=== PATIENT | female | born 1950 ===

== ENCOUNTER 2023-05-26 08:30 | Inpatient (IN) | payer OTHER ==
[~2023-05-26] VITALS: Ht 160 cm; Wt 95.3 kg
[2023-05-26] MEDS ORDERED: COZAAR100 MG PO (09:53)
[2023-05-26] MEDS ORDERED: FOLIC PO (09:54)
[2023-05-26] MEDS ORDERED: HORIZANT600 MG PO (09:54)
[2023-05-26] MEDS ORDERED: ACID REDUCER20 M1 PO (09:54)
[2023-05-26] MEDS ORDERED: SINGULAIR10 MG PO (09:55)
[2023-05-26] MEDS ORDERED: TIROSINT88 MCG PO (09:55)
[2023-05-26] MEDS ORDERED: BUSP PO (09:55)
[2023-05-26] MEDS ORDERED: TRIJARDY XR 251 EACH PO (09:57)
[2023-05-31] MEDS ORDERED: FOLIC ACID1 MG PO (08:54)
[2023-05-31] MEDS ORDERED: BUSPIRONE HCL5 MG PO (08:55)
[2023-05-31] MEDS ORDERED: ROSUVASTATIN CA40 MG (08:56)
[2023-05-31] MEDS ORDERED: GABAPENTIN300 M2 (08:56)
[2023-05-31] MEDS ORDERED: JARDIANCE25 MG (08:56)
[2023-05-31] MEDS ORDERED: CHLORTHALIDONE25 MG (08:56)
[2023-05-31] MEDS ORDERED: ST. JOSEPH ASPI81 M2 (08:56)
[2023-05-31] MEDS ORDERED: SERTRALINE HCL25 MG (08:56)
[2023-05-31] MEDS ORDERED: OMEPRAZOLE20 MG (08:56)
[2023-05-31] MEDS ORDERED: FAMOTIDINE40 MG (08:56)
[2023-05-31] MEDS ORDERED: DOXAZOSIN MESYLA4 MG (08:56)
[2023-05-31] MEDS ORDERED: ZANAFLEX2 MG (08:57)
[2023-05-31] MEDS ORDERED: TOLTERODINE TART4 MG (08:57)
[2023-06-01] MEDS ORDERED: LEVOFLOXACIN750 MG PO (06:31)
[2023-06-01] MEDS ORDERED: INTEGRA PLUS C1 EACH PO (06:31)
[2023-06-01] MEDS ORDERED: XARELTO10 MG PO (06:31)
[2023-06-01] MEDS ORDERED: OXYC1TAB9 PO (06:31)
== END 2023-06-01 17:18 | DRG 470 ==
LOC: O/R 05-30 08:00 → SURG 05-30 08:30 → SURH 05-30 15:23 → SURG 05-30 15:24
PROVIDERS: ADMIT Orthopaedic Surgery Sports Medicine; ATTEND Orthopaedic Surgery Sports Medicine
PROC: 0SRD0J9 Replacement of Left Knee Joint with Synthetic Substitute, Cemented, Open Approach (ICD-10-PCS; principal; 2023-05-30 10:30)
DX: M17.12 Unilateral primary osteoarthritis, left knee (principal); I10 Essential (primary) hypertension; E03.9 Hypothyroidism, unspecified; E11.9 Type 2 diabetes mellitus without complications; Z96.652 Presence of left artificial knee joint

== ENCOUNTER 2025-09-09 07:00 | Day surgery (SDC) | payer OTHER ==
[2025-09-03 09:36] LABS: BASO % 0.8 % (0.1-1.2); EOS # 0.23 (0.04-0.54); EOS % 3.0 % (0.7-7.0); LYMPH # 2.89 (1.18-3.74); LYMPH % 37.9 % (19.3-53.1); MEAN PLATELET VOLUME 9.10 fl (9.4-12.4); MONO # 0.94 (0.24-0.82); NEUT # 3.50 (1.56-6.13); NEUT % 45.9 % (34.0-71.1); RED CELL DISTRIBUTION WIDTH 11.9 % (11.6-14.4)
[2025-09-03 09:48] VITALS: BP 129/79
[2025-09-03 09:48] LABS: URINE APPEARANCE Clear; URINE BILIRRUBIN Negative (NEGATIVE); URINE BLOOD Trace; URINE COLOR Yellow; URINE KETONE Negative (NEGATIVE); URINE LEUKOCYTE Small; URINE NITRATE Negative; URINE PROTEIN Negative (NEGATIVE); URINE UROBILINOGEN 0.2 E.U./dl
[2025-09-03 09:48] LABS: MONO % 12.3 % (4.7-12.5)
[2025-09-03 09:52] LABS: URINE BACTERIA 176.4 uL (0.0-1933); URINE EPITHELIAL CELLS 40.4 uL (0.0-38.8); URINE RBC 2.0 uL (0.0-20.8); URINE WBC 81.6 uL (0.0-23.2)
[2025-09-03 10:03] LABS: URINE CAST 0.29 uL (0.0-1.40); URINE GLUCOSE >=1000 MG/DL (NEGATIVE)
[2025-09-03 10:04] LABS: INR 0.95
[2025-09-03 11:02] LABS: ALT/SGPT 18.0 U/L (12-78); AST/SGOT 14.0 U/L (15-37); BILIRUBIN TOTAL 0.38 mg/dL (0.3-1.2); BUN CREA RATIO 27.0 (7.0-25.0); CREATININE SERUM 0.75 mg/dL (0.55-1.02); GFR 75.54; GLOBULINA 3.1 G/DL (2.4-3.5); GLUCOSE FASTING 105.0 mg/dL (65-100); OSMOLALITY SERUM 290.0 MOSM/KG (275-295)
[~2025-09-09] VITALS: Ht 160 cm; Wt 89.8 kg
[~2025-09-09 07:00] MED LIST: ACID REDUCER20 M1 PO; AMLODIPINE-OLM1 EAC2 PO; BUSP PO; BUSPIRONE HCL5 MG PO; CHLORTHALIDONE25 MG; COZAAR100 MG PO; DOXAZOSIN MESYLA4 MG; FAMOTIDINE40 MG; FOLIC ACID1 MG PO; FOLIC PO; GABAPENTIN300 M2; HORIZANT600 MG PO; INTEGRA PLUS C1 EACH PO; JARDIANCE25 MG; LEVOFLOXACIN750 MG PO; OMEPRAZOLE20 MG; OXYC1TAB9 PO; ROSUVASTATIN CA40 MG; SERTRALINE HCL25 MG; SINGULAIR10 MG PO; ST. JOSEPH ASPI81 M2; TIROSINT88 MCG PO; TOLTERODINE TART4 MG; TRIJARDY XR 251 EACH PO; XARELTO10 MG PO; ZANAFLEX2 M1 PO; ZANAFLEX2 MG; ZETIA10 MG PO
[2025-09-09] MEDS ORDERED: BUPIVACAINE HCL 30 ML VIAL IJ ONE (10:45)
[2025-09-09] MEDS ORDERED: VANCOMYCIN HCL 1,000 MG VIAL IV SCH (10:45)
[2025-09-09] MEDS ORDERED: LIDOCAINE HCL 1%/EPINEPHRINE 20ML VIAL IJ ONE (10:45)
[2025-09-09] MEDS ORDERED: CIPRO500 MG PO (11:20)
[2025-09-09] MEDS ORDERED: ACETAMINOPHEN-1 EAC2 PO (11:20)
[2025-09-09] MEDS ORDERED: ACETAMINOPHEN WITH CODEINE 1 UDTAB TABLET PO PRN (11:30)
== END 2025-09-09 14:00 | disposition home or self-care (01) ==
LOC: CIR.AMB 07:00
PROVIDERS: ATTEND Orthopaedic Surgery Sports Medicine
DX: M75.121 Complete rotator cuff tear or rupture of right shoulder, not specified as traumatic (principal); M75.21 Bicipital tendinitis, right shoulder; M19.011 Primary osteoarthritis, right shoulder; Z88.2 Allergy status to sulfonamides; Z88.0 Allergy status to penicillin